=== PATIENT | male | born 1940 ===

== ENCOUNTER 2017-12-08 07:22 | Day surgery (SDC) | payer OTHER ==
--- NOTE | 2017-12-04 20:34 | HP ---
HISTORY AND PHYSICAL: DATE OF ADMISSION: 12/08/17 [facility] CHIEF COMPLAINT: Right inguinal hernia. 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 He started to complain of achiness and pain over the right groin area. He was seen by his primary physician who diagnosed right inguinal hernia and the patient is being admitted for a right inguinal hernia repair under local anesthesia plus sedation. PAST MEDICAL HISTORY: The patient's past medical history is remarkable for aortic valve disease with mild to moderate regurgitation, normal left ventricular size and function by any evaluation done in 2017. The patient has mild hypertension and occasional ventricular ectopy. The patient has stage 3b nephropathy with creatinine of 1.9 and the BUN of 35. He has high cholesterol and the patient has hyperparathyroidism. That was treated surgically in 2009 by excision of parathyroidectomy, however, the hypercalcemia persistent, although, lower and it is being managed medically. The patient has benign thyroid nodules and has nonsurgical and noncritical bilateral carotid artery stenosis in the less than 60% range. CURRENT MEDICATIONS: Include: 1. Allopurinol for gout 300 mg p.o. daily. 2. Fluoxetine 10 mg p.o. daily. 3. Fluticasone propionate 50 mcg/ACT nasal suspension. 4. Folic acid 1 mg p.o. daily. 5. Hydrochlorothiazide 25 mg p.o. daily. 6. Lisinopril 5 mg p.o. daily. 7. Metoprolol ER 25 mg p.o. daily. 8. Simvastatin 40 mg p.o. daily. 9. Trazodone 100 mg p.o. q.h.s. p.r.n. 10. Viagra 100 mg p.o. p.r.n. FAMILY HISTORY: The patient's family history noncontributory. 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 Drinks socially occasionally. REVIEW OF SYSTEMS: The patient's review of systems is contributory for ENT: Decreased hearing for which he uses a hearing aid, also the patient has hyperparathyroidism already treated 2009 with parathyroidectomy. Cardiovascular : The patient [id number] aortic insufficiency that appears to be under control with an ejection fraction in the 60% range. Urinary: The patient has elevated BUN and creatinine with mild renal insufficiency. Musculoskeletal: Arthritic changes. Abdominal: The patient has a right inguinal hernia. Neurological: It is unremarkable. PHYSICAL EXAMINATION VITAL SIGNS: The patient is 5 feet 10 inches, 199 pounds. The blood pressure is 114/60, heart rate of 56. HEAD AND NECK: Reveal the no neck nodes or masses. LUNGS: Clear to auscultation bilaterally. HEART: Regular with a systolic murmur. ABDOMEN: Soft and depressible. No masses are palpable. There is a right inguinal hernia present. No inguinal hernia on the left side. EXTREMITIES: Examination reveals no edema. Excellent palpable pulses. DIAGNOSTIC IMPRESSION: Right inguinal hernia. PLAN: Plan is for right inguinal hernia repair under local anesthesia plus sedation. The patient understands of the potential complications including but not exclusive of others such as recurrence, infection. The patient understands , agrees and wishes to proceed. [id number]/[facility] #: [id number] MTDD
[~2017-12-08 07:22] MED LIST: Buffered Lidocaine 0.9% SYRIN* 5 ML/SYR SYRINGE INTRADERM ONE
[2017-12-08] MEDS ORDERED: ceFAZolin 2 GM PREMIX in ORs 2 GM/50 ML BAG IVPB ONE (07:39)
[2017-12-08] MEDS ORDERED: Midazolam* 1 MG/ML 5 ML VIAL (5 MG) ONE (08:17)
[2017-12-08] MEDS ORDERED: Lidocaine 1% INJ* 10 MG/ML 30 ML SDV ONE (08:19)
[2017-12-08] MEDS ORDERED: Bupivacaine 0.5% W/EPI SDV* 30 ML VIAL ONE (08:19)
[2017-12-08] MEDS ORDERED: fentaNYL* 50 MCG/ML 2 ML VIAL (100 MCG VIAL) ONE (08:33)
[2017-12-08] MEDS ORDERED: Dexamethasone IV* 4 MG/ML 1 ML (4 MG) ONE (08:36)
[2017-12-08] MEDS ORDERED: Propofol* 10 MG/ML 20 ML BTL IV PUSH ONE (08:40)
[2017-12-08] MEDS ORDERED: oxyCODONE/Acetamin 5/325 MG* TAB PO PRN (09:14)
[2017-12-08] MEDS ORDERED: Naloxone* 0.4 MG/ML 1 ML VIAL IV PRN (09:14)
[2017-12-08] MEDS ORDERED: fentaNYL* 50 MCG/ML 2 ML VIAL (100 MCG VIAL) IV PRN (09:14)
[2017-12-08] MEDS ORDERED: Ondansetron INJ* 2 MG/ML VIAL IV PRN (09:14)
[2017-12-08 11:00] VITALS: BP 150/56
--- NOTE | 2017-12-09 01:23 | OP ---
DATE OF OPERATION: 12/08/17 [facility] DATE OF : 40 SURGEON: Cristhian Jay MD [employer] MANAGER: Ariadna Stafford NP ANESTHESIA: Local plus MAC. PRE-OP DIAGNOSIS: Right inguinal hernia. POST-OP DIAGNOSIS: Right recurrent inguinal hernia. OPERATIVE PROCEDURE: Right inguinal hernia repair. INDICATIONS: The patient is a 77-year-old male with history of right inguinal hernia that he started to notice after working out. The patient had a left inguinal hernia repair done laparoscopically several years ago. Because of the symptomatic right inguinal hernia, the patient was brought in for right inguinal hernia repair under local anesthesia and sedation. ESTIMATED BLOOD LOSS: None. DESCRIPTION OF PROCEDURE: The patient was taken to the procedure room. He was placed in supine position. Prior to the surgery, proper identification of the patient and site of surgery was done. The patient was prepped and draped in the usual sterile fashion. He received preoperative antibiotics. Under sedation, lidocaine 1% was used to infiltrate in the surrounding area of the right groin area by first performing an ilioinguinal nerve block 2 cm medial to the anterior iliac spine. After this, lidocaine 1% was used to infiltrate in the surrounding area of the right groin. An oblique incision was performed. Incision was carried down through the skin and subcutaneous tissue, bleeders were controlled by electrocoagulation. The Rosendo fascia was opened. Upon exposing the external oblique fascia, there was evidence of Prolene sutures that appeared to be remaining from the closure of a previous appendectomy towards the end tail. The external oblique fascia was then opened. The ilioinguinal nerve was identified, preserved, and mobilized. The spermatic cord was mobilized. There appeared to be an edge of a mesh that was behind on the properitoneal space. On the medial aspect of this mesh in the Poupart's ligament and the pubic tubercle, there was a bulging hernia, the size of the tip of the index finger was approximately 8 mm in diameter. This appeared to be the culprit for the pain and the edge of the mesh that had been placed there had detached. It appeared that during the laparoscopic hernia repair for the left mesh was either laid over the right side as well in continuity and this appeared to be the source of recurrence. Dissection was carried in the Hesselbach triangle exposing the conjoint tendon, internal oblique fascia, and Poupart's ligament, and the previous mesh. By bringing together the mesh that was already existing there and closing the small 8-mm opening between the Poupart's ligament and conjoint tendon, the hernia would be repaired using [id number] interrupted 0 Prolene sutures and the gap was repaired bringing together the conjoint tendon to Poupart's ligament and the edge of the preexisting mesh to Poupart's ligament. After this was completed, the patient was asked to do a sit up and a solid repair was noted on the floor of the Hesselbach triangle. The patient was also asked to cough, no defect was noted. At the end, the spermatic cord and ilioinguinal nerve were laid over the Hesselbach triangle and the Rosendo's fascia was then closed with interrupted 4-0 Vicryl suture as the external oblique fascia was fibrotic. At this point, no bleeders were noticed. The skin was closed subcuticular using 4- 0 Monocryl suture and Steri-Strips. The patient tolerated the procedure, he was then taken in good condition to the recovery room. [id number]/[facility] #: [id number] [place]CR[place]
== END 2017-12-08 10:30 | disposition home or self-care (01) ==
LOC: OREAST 07:22
PROVIDERS: ATTEND Surgery
DX: K40.91 Unilateral inguinal hernia, without obstruction or gangrene, recurrent (principal); I10 Essential (primary) hypertension; E78.00 Pure hypercholesterolemia, unspecified; E21.3 Hyperparathyroidism, unspecified
CPT/HCPCS: J0690; J1100; J2250; J2704; J3010